=== PATIENT | male | born 1990 | race African-American/Black ===

== ENCOUNTER 2019-01-10 06:13 | Day surgery (SDC) | payer OTHER ==
[~2019-01-10 06:13] MED LIST: CEFAZOLIN 2 GM/D5W RTU 2 GM/50 ML RTUPB IV PRN
[2019-01-10] MEDS ORDERED: BUPIVACAINE HCL 0.5 % INJ/PF 30 ML SDV ONE (07:53)
[2019-01-10] MEDS ORDERED: PROPOFOL INJ 200 MG/20 ML VIAL IV ONE (08:25)
[2019-01-10] MEDS ORDERED: MIDAZOLAM 2 MG/2 ML INJ ONE (08:25)
[2019-01-10] MEDS ORDERED: FENTANYL CITRATE INJ/PF 100 MCG/2 ML AMPUL ONE (08:25)
[2019-01-10] MEDS ORDERED: DEXMEDETOMIDINE INJ 80 MCG/20 ML VIAL IV ONE (08:25)
[2019-01-10] MEDS ORDERED: KETAMINE HCL INJ 500 MG/10 ML VIAL ONE (08:25)
[2019-01-10] MEDS ORDERED: ACETAMINOPHEN 1,000 MG/100 ML RTUPB IV ONE (08:26)
[2019-01-10] MEDS ORDERED: CEFAZOLIN 2 GM/D5W RTU 2 GM/50 ML RTUPB IV ONE (08:44)
[2019-01-10] MEDS ORDERED: SUCCINYLCHOLINE CHLORIDE INJ 200 MG/10 ML VIAL ONE (10:11)
[2019-01-10] MEDS ORDERED: ONDANSETRON HCL INJ/PF 4 MG/2 ML SDV ONE (10:11)
[2019-01-10] MEDS ORDERED: METOCLOPRAMIDE HCL INJ/PF 10 MG/2 ML SDV ONE (10:11)
[2019-01-10] MEDS ORDERED: KETOROLAC TROMETHAMINE 60 MG/2 ML SDV ONE (10:11)
[2019-01-10] MEDS ORDERED: GLYCOPYRROLATE 1 MG/5 ML SYRINGE ONE (10:11)
[2019-01-10] MEDS ORDERED: DEXAMETHASONE SOD PHOSPHATE INJ 4 MG/1 ML VIAL ONE (10:11)
[2019-01-10] MEDS ORDERED: LIDOCAINE 2% INJ-PF (20 MG/ML) 2 ML AMPUL ONE (10:11)
[2019-01-10] MEDS ORDERED: OXYCODONE-ACETAMINOPHEN 5-325 MG TABLET PO PRN (10:53)
[2019-01-10] MEDS ORDERED: ONDANSETRON HCL INJ/PF 4 MG/2 ML SDV IV PRN ×2 (10:53→11:00)
[2019-01-10] MEDS ORDERED: DIPHENHYDRAMINE HCL 50 MG/ML VIAL IV PRN (11:00)
[2019-01-10] MEDS ORDERED: MEPERIDINE HCL/PF INJ 25 MG/1 ML DISP.SYRIN IV PRN (11:00)
[2019-01-10] MEDS ORDERED: PROMETHAZINE HCL INJ 25 MG/1 ML VIAL IV PRN ×2 (11:00)
[2019-01-10] MEDS ORDERED: FENTANYL CITRATE INJ/PF 100 MCG/2 ML AMPUL IV PRN ×3 (11:00)
--- NOTE | 2019-01-10 11:03 | OPERATIVE REPORT E ---
Operative Report NAME: JEAN HAILE : 1990 AGE: 28Y DATE OF SURGERY: 01/10/2019 ROOM: PREOPERATIVE DIAGNOSIS: Left thumb degloving injury. POSTOPERATIVE DIAGNOSIS: Left thumb degloving injury. PROCEDURES: 1. Left thumb debridement of necrotic tissue, including full-thickness skin, subcutaneous tissue, and muscle. 2. Left thumb flap advancement closure. 3. Left thumb full-thickness skin graft from hypothenar eminence. SURGEON: BAYRON SULTANA M.D. ANESTHESIA: General. BLOOD LOSS: Minimal. COMPLICATIONS: None. 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 There was a large open wound with exposed tissue, not amenable to granulation and had failed granulation attempts with necrotic dysvascular tissue. DESCRIPTION OF PROCEDURE: Following the induction of general anesthetic and administration of antibiotics, the patient was positioned supine on the operating room table. Bony prominences were padded. Tourniquet was placed proximally on the left arm, but not inflated. The left upper extremity was sterilely prepped with Betadine scrub, *------* solution, and draped in standard fashion. There was a bunch of necrotic tissue and eschar deep within the thumb that had failed to begin granulating. This was debrided sharply with a 15 blade. The margins of the skin had also necrosed and they were debrided sharply with a 15 blade. All tissue from skin to subcutaneous tissue to deep tissue were debrided back to a clean stable base. The wound was then copiously irrigated. The length of the wound was from the palm across from metacarpal to distal phalanx on the radial aspect bordering the nail. In order to close a portion of the skin, an advancement flap was fashioned. A transverse incision was made proximally and the skin was advanced distally on the digital nerve pedicles. This was then sutured into place. A full-thickness skin graft was then harvested from the hypothenar eminence from the border of the glabrous and non-glabrous region. This skin graft was used to graft the region where the skin had been advanced from as well as to graft the region by the nail. These were sutured into place. Sutures were left long for bolsters. Total of 0.25% Marcaine was injected in all the wounds. Bolsters were applied to the thumb wound over the full-thickness skin graft. Bolsters were fashioned from 4 x 4 dressings, rolled, and covered with Xeroform gauze. They were tied snuggly using the aforementioned sutures. A sterile dressing was placed also over the skin graft sites and a bulky dressing comprised the entire hand. The patient tolerated the procedure well without complication and was brought to the recovery room in stable condition. DICTATING PHYSICIAN: BAYRON SULTANA M.D. [id number] PHY#: [id number] ID: [id number] JOB#: [id number] ACCT: [id number] cc:BAYRON SULTANA M.D. >
[2019-01-10] MEDS ORDERED: OXYCODONE-ACETAMINOPHEN 5-325 MG TABLET ONE (11:23)
[2019-01-10 12:21] VITALS: BP 118/74
== END 2019-01-10 12:15 | disposition home or self-care (01) ==
LOC: OROUT 06:13
PROVIDERS: ATTEND Orthopaedic Surgery
DX: S61.402A Unspecified open wound of left hand, initial encounter (principal); S61.002A Unspecified open wound of left thumb without damage to nail, initial encounter; W23.0XXA Caught, crushed, jammed, or pinched between moving objects, initial encounter; Z88.5 Allergy status to narcotic agent
CPT/HCPCS: 15240; 14040; 11043; J2250; J3490 ×3; J1100; J1885; J3010; J2765; J0330; J2405; J2704; J0690; J0131; 1810

== ENCOUNTER 2019-01-30 11:55 | Day surgery (SDC) | payer OTHER ==
[2019-01-30] MEDS ORDERED: MIDAZOLAM 2 MG/2 ML INJ ONE ×2 (13:25→13:49)
[2019-01-30] MEDS ORDERED: BACITRACIN INJ 50,000 UNIT VIAL ONE (13:25)
[2019-01-30] MEDS ORDERED: CEFAZOLIN 2 GM/D5W RTU 2 GM/50 ML RTUPB IV ONE (13:40)
[2019-01-30] MEDS ORDERED: PROPOFOL INJ 200 MG/20 ML VIAL IV ONE (13:49)
[2019-01-30] MEDS ORDERED: FENTANYL CITRATE INJ/PF 100 MCG/2 ML AMPUL ONE (13:49)
[2019-01-30] MEDS ORDERED: ONDANSETRON HCL INJ/PF 4 MG/2 ML SDV ONE (13:49)
[2019-01-30] MEDS ORDERED: MEPERIDINE HCL/PF INJ 25 MG/1 ML DISP.SYRIN IV PRN (14:33)
[2019-01-30] MEDS ORDERED: MORPHINE SULFATE 10 MG/ML INJ IV PRN (14:33)
[2019-01-30] MEDS ORDERED: DIPHENHYDRAMINE HCL 50 MG/ML VIAL IV PRN (14:33)
[2019-01-30] MEDS ORDERED: FENTANYL CITRATE INJ/PF 100 MCG/2 ML AMPUL IV PRN ×3 (14:33)
[2019-01-30] MEDS ORDERED: PROMETHAZINE HCL INJ 25 MG/1 ML VIAL IV PRN (14:33)
[2019-01-30] MEDS: FENTANYL CITRATE INJ/PF 100 MCG/2 ML AMPUL ONE ×2 (15:17→15:22)
[2019-01-30] MEDS ORDERED: OXYCODONE-ACETAMINOPHEN 5-325 MG TABLET PO PRN (15:37)
[2019-01-30] MEDS ORDERED: ONDANSETRON HCL INJ/PF 4 MG/2 ML SDV IV PRN (15:49)
[2019-01-30] MEDS ORDERED: OXYCODONE-ACETAMINOPHEN 5-325 MG TABLET ONE (16:02)
--- NOTE | 2019-01-30 16:09 | OPERATIVE REPORT E ---
Operative Report NAME: JEAN HAILE : 1990 AGE: 28Y DATE OF SURGERY: 01/30/2019 ROOM: PREOPERATIVE DIAGNOSIS: LEFT WRIST AND HAND DEEP INFECTION. POSTOPERATIVE DIAGNOSIS: LEFT WRIST AND HAND DEEP INFECTION. OPERATION: 1. INCISION AND DEBRIDEMENT LEFT WRIST DEEP ABSCESS. 2. DEBRIDEMENT SKIN, SUBCUTANEOUS TISSUE AND MUSCLE ULNAR ASPECT LEFT HAND. 3. INCISION AND DEBRIDEMENT LEFT THUMB TENDON SHEATH. 4. MANIPULATION INDEX FINGER UNDER ANESTHESIA. 5. MANIPULATION LONG FINGER UNDER ANESTHESIA. 6. MANIPULATION RING FINGER UNDER ANESTHESIA. 7. MANIPULATION SMALL FINGER UNDER ANESTHESIA. SURGEON: BAYRON SULTANA M.D. ANESTHESIA: General. ESTIMATED BLOOD LOSS: Minimal. COMPLICATIONS: None. INDICATIONS: The patient is a 28-year-old man who had undergone debridement of a wound of his thumb with skin transfer and grafting. He presented back to the office just yesterday with necrosis of both the skin graft and ulnar aspect of his hand with purulent drainage. He had eaten prior, so was brought back to the operating room today for surgical debridement. PROCEDURE: Following the induction of a general anesthetic, the patient was positioned supine on the operating room table. Bony prominences were padded. Tourniquet was placed proximally on the arm but not inflated. Left upper extremity was sterilely prepped with Betadine preparation and solution and draped in standard fashion. The arm was exsanguinated and the tourniquet inflated to 100 mm systolic pressure. There was active purulence in the wound, and despite debridement performed yesterday in the office, there was necrotic skin. The skin graft had completely come off during the skin prep on the thumb. The bed of the thumb was fairly clean, although the tendon was visible. On the ulnar aspect of the hand, there was persistent necrotic tissue at the wound margins and deeply. This tissue was sharply debrided with a 15 blade through layers of skin, subcutaneous tissue, and muscle. It did appear to be entering the wrist compartments of the hand. I had not quite made the ulnar bursa at this point. Following debridement of all necrotic tissue, copious irrigation was performed with 6 liters of pulsatile lavage until all fluid was clean. Moistened gauze was placed into the ulnar hand wound. Moistened gauze was also placed over the thumb bed and sterile dressings were applied. While the patient was still under anesthesia, as his fingers had become stiff due to lack of movement, gentle manipulation of first the index, followed by the long, followed by the ring, and followed by the small was performed. Manipulation was started at the MP joints, putting MP joint into full flexion followed by the PIP joint into full flexion. Adhesions could be felt to be lysed with this maneuver. All fingers were then extended at the MP joint followed by the PIP joint and DIP joint. Again, adhesions were found. At this point, the fingers had become much more loose and supple to be manipulated. This was done several times until all fingers were quite loose and supple. The patient tolerated the procedure well without complication. Cultures were taken prior to antibiotics. 2 grams of Ancef were administered after cultures were taken. The patient was taken to the recovery room in good condition. As this is a soft tissue defect and everything appeared clean, he will be discharged and maintained on oral antibiotics which may be changed based on culture results. He will begin wound care under the supervision of a certified therapist on Sunday, four days from today, and he will follow up in my office the following day. I have been in direct contact with the wound care therapist. DICTATING PHYSICIAN: BAYRON SULTANA M.D. [id number] PHY#: [id number] ID: [id number] JOB#: [id number] ACCT: [id number] cc:BAYRON SULTANA M.D. > MTDD
[2019-01-30 17:53] VITALS: BP 166/102
== END 2019-01-30 17:55 | disposition home or self-care (01) ==
LOC: OROUT 11:55
PROVIDERS: ATTEND Orthopaedic Surgery
PROC: 0KDD0ZZ Extraction of Left Hand Muscle, Open Approach (ICD-10-PCS; 2019-01-30)
PROC: 0LD80ZZ Extraction of Left Hand Tendon, Open Approach (ICD-10-PCS; 2019-01-30)
PROC: 0RN Upper Joints, Release (ICD-10-PCS; 2019-01-30)
PROC: 0RN Upper Joints, Release (ICD-10-PCS; 2019-01-30)
PROC: 0RN Upper Joints, Release (ICD-10-PCS; 2019-01-30)
PROC: 0RN Upper Joints, Release (ICD-10-PCS; 2019-01-30)
PROC: 0J9H0ZZ Drainage of Left Lower Arm Subcutaneous Tissue and Fascia, Open Approach (ICD-10-PCS; principal; 2019-01-30 13:30)
DX: S61.012A Laceration without foreign body of left thumb without damage to nail, initial encounter (principal); T81.31XA Disruption of external operation (surgical) wound, not elsewhere classified, initial encounter; L02.414 Cutaneous abscess of left upper limb
CPT/HCPCS: 1810; 87070; 87075; 87077; 87186; 87205; J0690; J2250; J2405; J2704; J3010; J3490